=== PATIENT | male | born 1990 | race Hispanic/Latino ===

== ENCOUNTER 2017-07-07 18:05 | Emergency (ER) | payer MEDICAID ==
[2017-07-07 18:10] VITALS: BP 171/97; PULSE 100; RESP 18; TEMP 99.9; O2SAT 99
--- NOTE | 2017-07-07 18:33 | ED PDOC ---
HPI: General Adult Time Seen by Provider: 07/07/17 18:14 Chief Complaint (Nursing): Medical Clearance History Per: Patient Additional Complaint(s): Pt. brought in by police dept. for being under the influence. Pt. admits to using PCP today. Offers no complaints. Denies SI/HI, hallucinations, chest pain , SOB, palpitations. Past Medical History Reviewed: Historical Data, Nursing Documentation, Vital Signs Vital Signs: Last Vital Signs Temp 99.9 F H 07/07/17 18:08 Pulse 100 H 07/07/17 18:08 Resp 18 07/07/17 18:08 BP 171/97 H 07/07/17 18:08 Pulse Ox 99 07/07/17 19:09 - Medical History PMH: No Chronic Diseases - Family History Family History: States: No Known Family Hx - Allergies Allergies/Adverse Reactions: Allergies Allergy/AdvReac Type Severity Reaction Status Date / Time No Known Allergies Allergy Verified 07/07/17 18:08 Review of Systems ROS Statement: Except As Marked, All Systems Reviewed And Found Negative Physical Exam - Reviewed Nursing Documentation Reviewed: Yes Vital Signs Reviewed: Yes - Physical Exam Appears: Positive for: Well, Non-toxic, No Acute Distress Head Exam: Positive for: ATRAUMATIC, NORMAL INSPECTION, NORMOCEPHALIC Skin: Positive for: Normal Color, Warm. Negative for: Rash Eye Exam: Positive for: EOMI, Normal appearance, PERRL ENT: Positive for: Normal ENT Inspection Neck: Positive for: Normal, Painless ROM Cardiovascular/Chest: Positive for: Regular Rate, Rhythm Respiratory: Positive for: CNT, Normal Breath Sounds Gastrointestinal/Abdominal: Positive for: Normal Exam, Bowel Sounds, Soft. Negative for: Tenderness Back: Positive for: Normal Inspection Extremity: Positive for: Normal ROM Neurologic/Psych: Positive for: Alert, Oriented (x 3), Gait (steady and unassisted). Negative for: Aphasia, Facial Droop - ECG O2 Sat by Pulse Oximetry: 99 - Progress ED Course And Treament: principal examiner: SR at 93 bpm, BP: 168/86. Disposition - Clinical Impression Clinical Impression: Substance abuse - Patient ED Disposition Is Patient to be Admitted: No - Disposition Disposition: Discharged/Transfer to Law Enforcement Disposition Time: 18:33 Condition: STABLE Additional Instructions: Patient is medically and psychiatrically cleared for incarceration. Instructions: Polysubstance Abuse (ED) Forms: [employer] (Pashto) Print Language: LUX[place]BOURGISH
== END 2017-07-07 19:14 ==
LOC: H.ER 18:05
DX: F19.10 Other psychoactive substance abuse, uncomplicated (principal)

== ENCOUNTER 2017-08-06 22:19 | Emergency (ER) | payer MEDICAID ==
[2017-08-06 22:22] VITALS: RESP 16; O2SAT 99
--- NOTE | 2017-08-06 22:39 | ED PDOC ---
HPI: Psych/Substance Abuse Time Seen by Provider: 08/06/17 22:23 Chief Complaint (Nursing): Psychiatric Evaluation Chief Complaint (Provider): Psychiatric Evaluation History Per: Patient History/Exam Limitations: no limitations Onset/Duration Of Symptoms: Mins (prior to arrival) Current Symptoms Are (Timing): Still Present Additional Complaint(s): Yann Botello is a 26 year old male who presents to the emergency department for a crisis evaluation associated with suicidal ideation with no plan prior to arrival. Patient stated he has been depressed without treatment for "years". PMD: none provided Past Medical History Reviewed: Historical Data, Nursing Documentation, Vital Signs Vital Signs: Last Vital Signs Temp 97.9 F 08/06/17 22:20 Pulse 77 08/06/17 22:20 Resp 16 08/06/17 22:20 BP 169/82 H 08/06/17 22:20 Pulse Ox 99 08/06/17 22:20 - Medical History PMH: Depression - Surgical History Surgical History: No Surg Hx - Family History Family History: States: Unknown Family Hx - Social History Current smoker - smoking cessation education provided: No Ex-Smoker (has not smoked in the last 12 months): No Alcohol: Occasional - Allergies Allergies/Adverse Reactions: Allergies Allergy/AdvReac Type Severity Reaction Status Date / Time No Known Allergies Allergy Verified 07/07/17 18:08 Review of Systems ROS Statement: Except As Marked, All Systems Reviewed And Found Negative Psych: Positive for: Depression, Suicidal ideation Physical Exam - Reviewed Nursing Documentation Reviewed: Yes Vital Signs Reviewed: Yes - Physical Exam Appears: Positive for: Well, Non-toxic, No Acute Distress Head Exam: Positive for: ATRAUMATIC, NORMAL INSPECTION, NORMOCEPHALIC Eye Exam: Positive for: Normal appearance, EOMI, PERRL. Negative for: Nystagmus ENT: Positive for: Normal ENT Inspection Cardiovascular/Chest: Positive for: Regular Rate, Rhythm. Negative for: Chest Non Tender Respiratory: Positive for: Normal Breath Sounds, Accessory Muscle Use. Negative for: Decreased Breath Sounds, Respiratory Distress Gastrointestinal/Abdominal: Positive for: Normal Exam, Bowel Sounds, Soft. Negative for: Tenderness Extremity: Positive for: Normal ROM. Negative for: Tenderness, Pedal Edema Neurologic/Psych: Positive for: Alert, Oriented - ECG O2 Sat by Pulse Oximetry: 99 (RA) Pulse Ox Interpretation: Normal Medical Decision Making Medical Decision Making: Initial Impression: Suicidal ideation Initial Plan: * Drug screen, urine * Crisis evaluation * Urine dipstick * 1:1 OBS * Urinalysis Time: 22:24 --Patient has been evaluated by crisis and is medically stable for discharge --Case was discussed with Dr. Pinzon Clinical Impression: Polysubstance abuse and Depression Scribe Attestation: Documented by Joyce Eason & Victoria Montez, acting as a scribe for Alton Castañeda MD. Provider Scribe Attestation: All medical record entries made by the Scribe were at my direction and personally dictated by me. I have reviewed the chart and agree that the record accurately reflects my personal performance of the history, physical exam, medical decision making, and the department course for this patient. I have also personally directed, reviewed, and agree with the discharge instructions and disposition. Disposition - Clinical Impression Clinical Impression: Substance abuse, Depression - Patient ED Disposition Is Patient to be Admitted: No Counseled Patient/Family Regarding: Studies Performed, Diagnosis, Need For Followup - Disposition Disposition: Routine/Home Disposition Time: 22:24 Condition: STABLE Instructions: Depression (ED), Polysubstance Abuse (ED) Forms: [employer] (Albanian)
[2017-08-07 01:56] VITALS: BP 135/71; PULSE 78; TEMP 98
== END 2017-08-07 01:55 | disposition home or self-care (01) ==
LOC: H.ER 22:19
DX: R45.851 Suicidal ideations (principal); F32.9 Major depressive disorder, single episode, unspecified; F19.10 Other psychoactive substance abuse, uncomplicated

== ENCOUNTER 2017-09-01 18:32 | Emergency (ER) | payer SELFPAY ==
[2017-09-01 18:44] VITALS: BP 168/96; PULSE 74; RESP 16; TEMP 98.8; O2SAT 100
--- NOTE | 2017-09-01 20:46 | ED PDOC ---
Upper Extremity Pain/Injury Time Seen by Provider: 09/01/17 19:30 Chief Complaint (Nursing): Abnormal Skin Integrity Chief Complaint (Provider): Right thumb injury History Per: Patient History/Exam Limitations: no limitations Additional Complaint(s): Patient is a 27 y/o male with no significant past medical history presenting to the emergency department for a right thumb injury sustained twenty hours ago after a car door was slammed against his finger. Reports ongoing pain and denies any other complaints. PCP: none provided. Past Medical History Reviewed: Historical Data, Nursing Documentation, Vital Signs Vital Signs: Last Vital Signs Temp 98.8 F 09/01/17 18:42 Pulse 74 09/01/17 18:42 Resp 16 09/01/17 18:42 BP 168/96 H 09/01/17 18:42 Pulse Ox 100 09/01/17 18:42 - Medical History PMH: Depression Denies: Diabetes, Hepatitis, HIV, HTN, Seizures, Sexually Transmitted Disease - Family History Family History: States: Unknown Family Hx - Social History Alcohol: None - Home Medications Home Medications: Ambulatory Orders Medication Instructions Recorded Cephalexin [Keflex] 500 mg PO QID #20 capsule 09/01/17 - Allergies Allergies/Adverse Reactions: Allergies Allergy/AdvReac Type Severity Reaction Status Date / Time No Known Allergies Allergy Verified 09/01/17 18:42 Review of Systems ROS Statement: Except As Marked, All Systems Reviewed And Found Negative Musculoskeletal: Positive for: Other (Right thumb pain) Physical Exam - Reviewed Nursing Documentation Reviewed: Yes Vital Signs Reviewed: Yes - Physical Exam Appears: Positive for: Well, Non-toxic, No Acute Distress Head Exam: Positive for: ATRAUMATIC, NORMAL INSPECTION, NORMOCEPHALIC Skin: Positive for: Normal Color, Warm, DRY Eye Exam: Positive for: Normal appearance Neck: Positive for: Normal Cardiovascular/Chest: Positive for: Regular Rate, Rhythm Respiratory: Negative for: Accessory Muscle Use, Respiratory Distress Extremity: Positive for: Normal ROM (able to flex and extend but with pain noted ), Tenderness (right thumb DIP), Other (1 cm avulsion noted on right thumb with black discoloration on distal tip. no nail damage) Neurologic/Psych: Positive for: Alert, Oriented (x3) - ECG O2 Sat by Pulse Oximetry: 100 (RA) Pulse Ox Interpretation: Normal - Progress ED Course And Treament: xry of thumb: neg for fx Medical Decision Making Medical Decision Making: Time: 19:57 Initial impression: Right thumb injury Initial plan: * Keflex 500 mg PO * Tetanus shot 0.5 mL IM * Right hand x-ray ~ Scribe Attestation: Documented by Penelope Jackson, acting as a scribe for SHERRI Lieberman. Provider Scribe Attestation: All medical record entries made by the Scribe were at my direction and personally dictated by me. I have reviewed the chart and agree that the record accurately reflects my personal performance of the history, physical exam, medical decision making, and the department course for this patient. I have also personally directed, reviewed, and agree with the discharge instructions and disposition. Disposition - Clinical Impression Clinical Impression: Finger avulsion - Patient ED Disposition Is Patient to be Admitted: No - Disposition Referrals: Lio Boyle MD [Staff Provider] - Disposition: Routine/Home Disposition Time: 21:15 Condition: FAIR Prescriptions: Cephalexin [Keflex] 500 mg PO QID #20 capsule Instructions: Skin Avulsion (ED) Forms: [employer] (Hong Konger)
--- NOTE | 2017-09-02 08:56 | RAD ---
PROCEDURE: Right Thumb radiographs. HISTORY: THUMB INJURY COMPARISON: None. TECHNIQUE: AP radiograph of the right hand, as well as spot oblique and lateral images of thumb were obtained. FINDINGS: RIGHT THUMB: Normal right thumb, without fracture or focal lesion. Remainder of the right hand (as seen on the AP view) grossly unremarkable. JOINTS: Normal. SOFT TISSUES: Normal. OTHER FINDINGS: None. IMPRESSION: Normal right thumb radiographs.
== END 2017-09-01 21:31 | disposition home or self-care (01) ==
LOC: H.ER 18:32
DX: S61.011A Laceration without foreign body of right thumb without damage to nail, initial encounter (principal); W22.8XXA Striking against or struck by other objects, initial encounter; Y92.89 Other specified places as the place of occurrence of the external cause; F32.9 Major depressive disorder, single episode, unspecified

== ENCOUNTER 2017-11-07 21:30 | Emergency (ER) | payer MEDICAID ==
[2017-11-07 21:31] VITALS: BMI 25.8
[2017-11-07 21:44] VITALS: BP 122/97; PULSE 84; RESP 17; TEMP 98.4; O2SAT 98
[2017-11-07] MEDS ORDERED: Tmp-Smz 800 mg-160 mg DS Tab PO STA (21:49)
--- NOTE | 2017-11-07 21:54 | ED PDOC ---
HPI: General Adult Time Seen by Provider: 11/07/17 21:42 Chief Complaint (Nursing): Abnormal Skin Integrity Chief Complaint (Provider): Abnormal Skin Integrity History Per: Patient History/Exam Limitations: no limitations Onset/Duration Of Symptoms: Days (x2 days) Current Symptoms Are (Timing): Still Present Additional Complaint(s): 27 y/o male presents to the ED for right sided facial swelling x 2 days. Patient states that he popped a pimple day before onset of symptoms and the pimple has been draining pus today and has slightly decreased in size. Denies fever, trauma or any further medical complaints. Past Medical History Vital Signs: Last Vital Signs Temp 98.4 F 11/07/17 21:40 Pulse 84 11/07/17 21:40 Resp 17 11/07/17 21:40 BP 122/97 H 11/07/17 21:40 Pulse Ox 98 11/07/17 22:00 - Medical History PMH: Depression Denies: Diabetes, Hepatitis, HIV, HTN, Seizures, Sexually Transmitted Disease - Surgical History Surgical History: Appendectomy - Family History Family History: States: Unknown Family Hx - Social History Current smoker - smoking cessation education provided: Yes (Some days smoker) Alcohol: Other (yes) Drugs: Denies - Immunization History Hx Tetanus Toxoid Vaccination: No Hx Influenza Vaccination: No Hx Pneumococcal Vaccination: No - Home Medications Home Medications: Ambulatory Orders Medication Instructions Recorded Ibuprofen [Motrin Tab] 400 mg PO Q8 #10 tab 09/08/16 Cephalexin [Keflex] 500 mg PO QID #20 capsule 09/01/17 Cephalexin [cephalexin] 500 mg PO Q6 #28 cap 11/07/17 Sulfamethoxazole/Trimethoprim 2 tab PO BID #28 tab 11/07/17 [Bactrim DS 800 mg-160 mg] - Allergies Allergies/Adverse Reactions: Allergies Allergy/AdvReac Type Severity Reaction Status Date / Time No Known Allergies Allergy Verified 02/19/16 06:26 Review of Systems ROS Statement: Except As Marked, All Systems Reviewed And Found Negative (As per HPI, otherwise negative) Constitutional: Positive for: Other (Facial swelling but denies any other trauma ). Negative for: Fever Physical Exam - Reviewed Nursing Documentation Reviewed: Yes Vital Signs Reviewed: Yes - Physical Exam Appears: Positive for: Well, Non-toxic, No Acute Distress Head Exam: Positive for: ATRAUMATIC, NORMAL INSPECTION, NORMOCEPHALIC Skin: Positive for: Normal Color, Warm, Dry, Rash (1 pustule with mild swelling noted on rigth nasal labial fold with dry drainage and surrounding erythema without fluctuation; no extension into orbital area) Eye Exam: Positive for: Normal appearance, EOMI, PERRL. Negative for: Periorbital swelling, Periorbital tenderness, Conjunctival injection Respiratory: Negative for: Accessory Muscle Use, Respiratory Distress Back: Positive for: Normal Inspection Extremity: Positive for: Normal ROM Neurologic/Psych: Positive for: Alert, Oriented (x3). Negative for: Aphasia, Facial Droop - ECG O2 Sat by Pulse Oximetry: 98 (RA) Pulse Ox Interpretation: Normal - Progress ED Course And Treament: Pt. advised to return to return to ED immediately if fever develops or symptoms worsen. Also told to f/u with [facility]. Pt. verbalized understanding of instructions and necessary f/u with [facility]. Medical Decision Making Medical Decision Making: Time: 21:50 Plan: Keflex 500mg PO Sulfamethoxazole 2tab PO Scribe Attestation: Documented by Barbara Stubbs acting as a scribe for SHERRI Ramírez. Scribe Attestation: All medical record entries made by the Scribe were at my direction and personally dictated by me. I have reviewed the chart and agree that the record accurately reflects my personal performance of the history, physical exam, medical decision making, and the department course for this patient. I have also personally directed, reviewed, and agree with the discharge instructions and disposition. Disposition - Clinical Impression Clinical Impression: Cellulitis - Patient ED Disposition Is Patient to be Admitted: No - Disposition Referrals: [facility] [Outside] Disposition: Routine/Home Disposition Time: 22:00 Condition: STABLE Additional Instructions: Apply warm compresses to area Return to ED immediately if symptoms persist or worsen. Follow up with [facility] in 2 days for further evaluation. Prescriptions: Cephalexin [cephalexin] 500 mg PO Q6 #28 cap Sulfamethoxazole/Trimethoprim [Bactrim DS 800 mg-160 mg] 2 tab PO BID #28 tab Instructions: Cellulitis (ED) Forms: [employer] (Kiswahili) Print Language: UPPER SORBIAN
== END 2017-11-07 22:08 | disposition home or self-care (01) ==
LOC: H.ER 21:30
DX: L03.211 Cellulitis of face (principal); F32.9 Major depressive disorder, single episode, unspecified; F17.200 Nicotine dependence, unspecified, uncomplicated